=== PATIENT | male | born 1995 | race African-American/Black ===

== ENCOUNTER 2021-10-23 12:47 | Emergency (ER) | payer OTHER ==
[2021-10-23 12:53] VITALS: BP 125/84; PULSE 95; TEMP 97.8; BMI 43.9
[2021-10-23] MEDS ORDERED: DIPHTH,PERTUSS(ACELL),TET 0.5 ML DISP.SYRIN IM ONE ×2 (13:58→14:03)
== END 2021-10-23 14:10 | disposition home or self-care (01) ==
LOC: JERFT 12:47
PROC: 3E0234Z Introduction of Serum, Toxoid and Vaccine into Muscle, Percutaneous Approach (ICD-10-PCS; principal; 2021-10-23)
DX: S61.209A Unspecified open wound of unspecified finger without damage to nail, initial encounter (principal); W27.4XXA Contact with kitchen utensil, initial encounter
CPT/HCPCS: 90471; 90715; 99284-25

== ENCOUNTER 2023-05-14 13:10 | Emergency (ER) | payer OTHER ==
[2023-05-14 13:29] VITALS: BP 135/85; PULSE 85; RESP 18; TEMP 98.2; BMI 44.6
[2023-05-14] MEDS ORDERED: ACETAMINOPHEN 500 MG TABLET (FP) PO ONE (13:35)
[2023-05-14] MEDS ORDERED: LIDOCAINE 5% TOPICAL PATCH TP ONE (13:36)
[2023-05-14] MEDS ORDERED: KETOROLAC TROMETHAMINE 30 MG/1 ML VIAL IM ONE (13:36)
[2023-05-14] MEDS ORDERED: KETOROLAC TROMETHAMINE 30 MG/1 ML VIAL ONE (13:38)
[2023-05-14] MEDS ORDERED: ACETAMINOPHEN 500 MG TABLET (FP) ONE (13:38)
[2023-05-14] MEDS ORDERED: LIDOCAINE 5% TOPICAL PATCH ONE (13:39)
[2023-05-14] MEDS ORDERED: LIDOCAINE PATCH REMOVAL MC ONE (22:00)
== END 2023-05-14 14:35 | disposition home or self-care (01) ==
LOC: FER 13:10
PROC: 3E0233Z Introduction of Anti-inflammatory into Muscle, Percutaneous Approach (ICD-10-PCS; principal; 2023-05-14)
DX: M54.50 Low back pain, unspecified (principal)
CPT/HCPCS: 99284-25

== ENCOUNTER 2024-07-05 20:32 | Emergency (ER) | payer OTHER ==
[2024-07-05 20:40] VITALS: BP 152/91; PULSE 98; RESP 20; TEMP 98.6; BMI 41.1
[2024-07-05] MEDS ORDERED: IBUPROFEN 600 MG TABLET (FP) PO ONE (21:28)
[2024-07-05] MEDS: IBUPROFEN 600 MG TABLET (FP) PO ONE (21:37)
== END 2024-07-05 22:03 | disposition home or self-care (01) ==
LOC: JERFT 20:32
DX: M25.531 Pain in right wrist (principal); M25.511 Pain in right shoulder; R20.2 Paresthesia of skin
CPT/HCPCS: 73110-TC-LT-FY; 73110-TC-RT-FY; 73130-TC-LT-FY; 73130-TC-RT-FY; 99283-25